=== PATIENT | male | born 1945 | race Caucasian/White ===

== ENCOUNTER 2017-01-16 06:59 | Day surgery (SDC) | payer MEDICARE ==
[~2017-01-16] VITALS: Ht 172.7 cm; Wt 97.1 kg
[~2017-01-16 06:59] MED LIST: SIMV40TA2 PO
[2017-01-16] MEDS ORDERED: NS 1,000 ML IV ONE (07:00)
[2017-01-16] MEDS ORDERED: LIDOCAINE 2% INJ 100 MG/5 ML SDV (FOR ANES.) As Ordered ONE (08:48)
[2017-01-16] MEDS ORDERED: PROPOFOL 200 MG/20 ML VIAL As Ordered ONE ×2 (08:48→08:49)
--- NOTE | 2017-01-16 08:56 | ROOR ---
Patient Name: Bartolo Hernandez Procedure Date: 01/16/2017 8:39 AM Date of : 1945 Age: 71 Room: [facility] Gender: Male Note Status: Finalized Procedure: Colonoscopy Indications: High risk colon cancer surveillance: Personal history of colonic polyps Providers: Barry WALKER MD Referring MD: WILLA YEH MD Requesting Provider: Medicines: Monitored Anesthesia Care Complications: No immediate complications. Procedure: Pre-Anesthesia Assessment: - The heart rate, respiratory rate, oxygen saturations, blood pressure, adequacy of pulmonary ventilation, and response to care were monitored throughout the procedure. The Colonoscope was introduced through the anus and advanced to the terminal ileum, with identification of the appendiceal orifice and IC valve. The colonoscopy was performed without difficulty. The patient tolerated the procedure well. The quality of the bowel preparation was good. Findings: The perianal and digital rectal examinations were normal. Small Internal Hemorrhoids. The entire examined colon appeared normal on direct and retroflexion views. (Exam: Complete, Prep: Good or Excellent.) Impression: - Small Internal Hemorrhoids. - The entire examined colon is normal on direct and retroflexion views. - No specimens collected. Recommendation: - Repeat colonoscopy in 10 years for screening purposes. Barry Walker MD Barry WALKER MD 01/16/2017 8:56:00 AM This report has been signed electronically. Number of Addenda: 0 Note Initiated On: 01/16/2017 8:39 AM Estimated Blood Loss: Estimated blood loss: none.
[2017-01-16 09:15] VITALS: BP 136/78
== END 2017-01-16 09:25 | disposition home or self-care (01) ==
LOC: M OPP 06:59
PROVIDERS: ATTEND Internal Medicine Gastroenterology
DX: Z12.11 Encounter for screening for malignant neoplasm of colon (principal); K64.8 Other hemorrhoids; Z86.010 Personal history of colon polyps; Z79.899 Other long term (current) drug therapy; I10 Essential (primary) hypertension; G47.33 Obstructive sleep apnea (adult) (pediatric); E78.00 Pure hypercholesterolemia, unspecified; L40.9 Psoriasis, unspecified; Z87.891 Personal history of nicotine dependence; Z86.14 Personal history of Methicillin resistant Staphylococcus aureus infection; Z87.448 Personal history of other diseases of urinary system; Z83.6 Family history of other diseases of the respiratory system; Z80.0 Family history of malignant neoplasm of digestive organs; Z82.49 Family history of ischemic heart disease and other diseases of the circulatory system

== ENCOUNTER 2018-11-02 18:22 | Emergency (ER) | payer MEDICARE ==
[~2018-11-02] VITALS: Ht 170.2 cm; Wt 99.3 kg
[2018-11-02] MEDS ORDERED: LIPI20TA PO (18:27)
[2018-11-02] MEDS ORDERED: LIDOCAINE 2% W/EPIN INJ 20ML **PRES FREE INJ ONE (21:30)
[2018-11-02 21:47] LABS: BASO # 0.1 10^3/uL (0.0-0.2); BASO % 0.6 % (0.0-1.0); EOS # 0.4 10^3/uL (0.0-0.5); EOS % 4.2 % (0.0-3.0); HEMATOCRIT 40.3 % (42.0-52.0); LYMPH # 1.8 10^3/uL (1.5-5.0); LYMPH % 21.3 % (24.0-44.0); MEAN CORPUSCULAR HGB CONC 34.7 g/dl (32.0-36.5); MEAN CORPUSCULAR VOLUME 92.2 fl (80.0-96.0); MONO # 0.9 10^3/uL (0.0-0.8); MONO % 10.2 % (0.0-5.0); NEUTROPHILS # 5.4 10^3/uL (1.5-8.5); NEUTROPHILS % 63.5 % (36.0-66.0); PLATELET COUNT, AUTOMATED 233 10^3/uL (150-450); RED BLOOD COUNT 4.37 10^6/uL (4.30-6.10); WHITE BLOOD COUNT 8.5 10^3/uL (4.0-10.0)
[2018-11-02] MEDS ORDERED: DOXY100C37 PO (23:07)
[2018-11-02 23:09] VITALS: BP 157/85
== END 2018-11-02 23:13 | disposition home or self-care (01) ==
LOC: M ED 18:22
DX: L02.212 Cutaneous abscess of back [any part, except buttock and flank] (principal); L72.3 Sebaceous cyst; E78.5 Hyperlipidemia, unspecified; Z86.14 Personal history of Methicillin resistant Staphylococcus aureus infection; Z88.1 Allergy status to other antibiotic agents; Z88.2 Allergy status to sulfonamides

== ENCOUNTER 2018-11-04 10:20 | Emergency (ER) | payer MEDICARE ==
[~2018-11-04] VITALS: Ht 170.2 cm; Wt 99.0 kg
[2018-11-04 10:20] VITALS: BP 155/81
[~2018-11-04 10:20] MED LIST changes: +DOXY100C37 PO; +LIPI20TA PO
[2018-11-04] MEDS ORDERED: SIMV20TA2 (10:25)
== END 2018-11-04 10:56 | disposition home or self-care (01) ==
LOC: M ED 10:20
DX: Z48.00 Encounter for change or removal of nonsurgical wound dressing (principal); L02.219 Cutaneous abscess of trunk, unspecified; I10 Essential (primary) hypertension; E78.5 Hyperlipidemia, unspecified; G47.30 Sleep apnea, unspecified; Z88.1 Allergy status to other antibiotic agents; Z88.2 Allergy status to sulfonamides

== ENCOUNTER → 2020-08-01 | Outpatient (CLI) | payer MEDICARE ==
[~2020-08-01] MED LIST changes: +METHACHOLINE KIT (J7674) INH ONE; +SIMV20TA22; -SIMV40TA2 PO; +SIMV40TA20 PO
--- NOTE | 2020-08-01 10:50 | PFTRPT ---
Height: 67.50 Inches Weight: 210.00 Lbs BSA: 2.08 Diagnosis: R05 DATE: 08/01/2020 ORDERED BY: JANE Murrell QUALITY: Study of excellent technical quality. PROCEDURE: Under protocol, methacholine was administered. Even after a maximal dose of 25 mg or 188.875 CDUs, no provocation dose ever achieved. IMPRESSION: Negative methacholine challenge study. MTDD
== END ==
LOC: M CARPUL 09:47
PROVIDERS: ATTEND Physician Assistant
DX: R05 Cough (principal)
CPT/HCPCS: 94070; 95070; J7674

== ENCOUNTER → 2020-11-20 | Outpatient (CLI) | payer MEDICARE ==
[~2020-11-20] MED LIST changes: -DOXY100C37 PO; +DOXY1CAP62 PO; -METHACHOLINE KIT (J7674) INH ONE; +PRIL20TA2 PO; +XARE1TAB
--- NOTE | 2020-11-20 16:10 | REP ---
INDICATION: PULMONARY EMBOLISM COMPARISON: None. TECHNIQUE: Real time compression and duplex Doppler interrogation of the right lower extremity deep venous system is performed, including the left common femoral vein.Compression of the right peroneal and posterior tibial veins is performed. FINDINGS: The right common femoral, superficial femoral and popliteal veins are fully compressible with transducer pressure and demonstrate normal spontaneous and phasic flow, without evidence of deep venous thrombosis.The left common femoral vein demonstrates no thrombus.The visualized right posterior tibial vein demonstrates no thrombus. The right peroneal vein is not visualized due to body habitus. IMPRESSION: No evidence of deep venous thrombosis of the right lower extremity femoral popliteal venous system.The visualized right posterior tibial vein demonstrate no thrombus. <Electronically signed by Marcelo Mai > 11/20/20 [id number]
== END ==
LOC: M RAD 14:47
PROVIDERS: ATTEND Specialist
DX: I26.99 Other pulmonary embolism without acute cor pulmonale (principal)

== ENCOUNTER → 2022-01-23 | Outpatient (CLI) | payer MEDICARE ==
[~2022-01-23] MED LIST changes: +AZIT-12; +DOXY-443 PO; +DOXY100C3; -DOXY1CAP62 PO; +FOLI400T13 PO; +XARE10TA
== END ==
LOC: M WHC 07:40
PROVIDERS: ATTEND Internal Medicine
DX: N62 Hypertrophy of breast (principal)
CPT/HCPCS: 77066; G0279

== ENCOUNTER → 2022-02-11 | Outpatient (REF) | payer MEDICARE | LOC: M LAB REF 16:28 | PROVIDERS: ATTEND Surgery | DX: D48.5 Neoplasm of uncertain behavior of skin (principal); L72.0 Epidermal cyst ==

== ENCOUNTER 2024-04-29 10:04 | Emergency (ER) | payer MEDICARE ==
[~2024-04-29] VITALS: Ht 170.2 cm; Wt 98.5 kg
[~2024-04-29 10:04] MED LIST changes: +DOXY-441 PO; -DOXY-443 PO
[2024-04-29 15:05] VITALS: BP 154/80; TEMP 97.1; O2SAT 97
== END 2024-04-29 15:06 | disposition home or self-care (01) ==
LOC: M ED 10:04
DX: S00.93XA Contusion of unspecified part of head, initial encounter (principal); W01.198A Fall on same level from slipping, tripping and stumbling with subsequent striking against other object, initial encounter; E78.5 Hyperlipidemia, unspecified; Z86.711 Personal history of pulmonary embolism; Y92.009 Unspecified place in unspecified non-institutional (private) residence as the place of occurrence of the external cause; Y93.89 Activity, other specified; Y99.9 Unspecified external cause status; Z88.2 Allergy status to sulfonamides; Z79.899 Other long term (current) drug therapy